=== PATIENT | male | born 1940 ===

== ENCOUNTER → 2017-05-07 | Day surgery (SDC) | payer OTHER ==
[~2017-05-07] VITALS: Ht 165.1 cm; Wt 59.0 kg
[~2017-05-07] MED LIST: ASCO1CAP3 PO; ATOR-22 PO; B-CO1CAP3 PO; CALCTAB5 PO; CHOL1000 PO; FENTANYL CITRATE INJ 50 MCG/1 ML 2 ML VIAL ONE; FINA5TAB PO; LIDOCAINE HCL 2% 2 ML VIAL (20MG/ML) ONE; METO50TA16 PO; MIDAZOLAM HCL 5 MG/ML 1 ML VIAL ONE; MULT-506 PO; PROPOFOL IV EMULSION 10 MG/ML 20 ML VIAL IV ONE; RIVA1TAB4 PO; SENNTAB23 PO
[2017-05-07 07:16] VITALS: BP 140/70; PULSE 78; TEMP 36.7; O2SAT 98; Ht 165.1 cm; Wt 59.0 kg
--- NOTE | 2017-05-07 08:03 | History & Physical Bridge Note ---
H&P Re-Evaluation Bridge Note: I have examined the patient, reviewed the History & Physical and in the interval since the performance of the History & Physical I have noted the following changes of clinical significance: No changes noted
--- NOTE | 2017-05-07 08:03 | Procedure Note ---
Pre-Mod Sedation Assessment General Date of Moderate Sedation: May 07, 2017. Vital Signs: Vital Signs Past 12 Hours Date Time Temp Pulse Resp B/P (MAP) Pulse Ox O2 Delivery O2 Flow Rate FiO2 05/07/17 07:16 36.7 78 16 140/70 98 Room Air Review Cardiovascular: regular rate, rhythm Abdomen: soft Lungs: lungs clear Airway Class: II Pre-Sedation Airway Assessment Oral Cavity: Dentures Short Thick Neck: No Hx of Sleep Apnea: No Smoking Status: Never Smoker Mallampati Classification: Class II ASA Classification: Class II Procedure Planning Contraindications-for Mod Sed: None Yes Notes The planned sedation has been discussed with the patient and consent obtained. I have identified the patient, determined the appropriateness of sedation and have assessed the patient immediately prior to the procedure. All medicine(s) and interventions are by my order.
--- NOTE | 2017-05-07 09:26 | Procedure Note ---
Post-Mod Sedation Assessment General Date of Moderate Sedation May 07, 2017. Vital Signs: Vital Signs Past 12 Hours Date Time Temp Pulse Resp B/P (MAP) Pulse Ox O2 Delivery O2 Flow Rate FiO2 05/07/17 07:16 36.7 78 16 140/70 98 Room Air Review - Discharge Criteria Vital Signs Stable: Yes Alert/Oriented/Conversant: Yes Returned to Baseline Mental St: Yes Nausea Absent/Minimal: Yes Pain/Discomfort/Absent/Minimal: Yes Normal/Baseline Respirations: Yes Active Bleeding?: No Pt Received D/C Instructions: N/A Prescriptions Given: None Specific Proced. D/C Criteria Distal Pulses Present (Cardiac: Yes Groin site assessed-Card Cath: Yes Voided Prior To Discharge: Yes Discharged Patients Adult Escort/Transportation: Yes
--- NOTE | 2017-05-07 09:30 | Discharge Instructions ---
Discharge Instructions Date of Service May 07, 2017. Visit Reason for Visit: Atrial Flutter Dr Aleman-Ep; Dr Mancera-Rubén W/Anes Discharge Discharge Diagnosis / Problem: atypical atrial flutter Discharge Goals Goal(s): Improve function Activity Recommendations Activity Limitations: as noted below Lifting Limitations: no more than 10 pounds (for 1 week) Shower/Bathe: tomorrow Driving or Machine Use: resume 1 day after discharge Anesthesia . Post Anesthesia Instructions: If you have had General Anesthesia or IV Sedation: * Do not drive today. * Resume driving when surgeon permits. * Do not make important decisions or sign legal documents today. * Call surgeon for: 1. Temperature elevations greater than 101 degrees F. 2. Uncontrollable pain. 3. Excessive bleeding. 4. Persistent nausea and vomiting. 5. Medication intolerance (nausea, vomiting or rash). * For nausea and vomiting use only clear liquids such as: tea, soda, bouillon until nausea subsides, then gradually increase diet as tolerated. * If you have any concerns or questions, call your surgeon's office. If physician is unavailable and it is an emergency, call 911 or go to the nearest emergency room. . Diet Recommendations Recommended Home Diet: resume previous diet Procedures Procedures Performed: EPS Pending Studies Studies pending at discharge: no Medical Emergencies . Who to Call and When: Medical Emergencies: If at any time you feel your situation is an emergency, please call 911 immediately. . Non-Emergent Contact Non-Emergency issues call your: Motion Picture [employer] . . "Provider Documentation" section prepared by Xiomara Aleman. .
--- NOTE | 2017-05-07 09:32 | [facility] Post Operative Brief Note ---
Immediate Operative Summary Operative Date May 07, 2017. Pre-Operative Diagnosis atrial flutter Post-Operative Diagnosis atypical atrial flutter; bidrectional block across CTI Procedure(s) Performed EPS Surgeon shirley osorio Synthetic Resin Operator Surgeon(s) none Estimated Blood Loss <5cc Findings see official report Fluids (cc crystalloids) 300cc Specimens none Drains none Anesthesia 3mg versed 75mcg fentanyl Complication(s) None Disposition refuse laborer holding
--- NOTE | 2017-05-07 10:32 | OPERATIVE REPORT ---
DATE OF OPERATION: 05/07/2017 PREOPERATIVE DIAGNOSIS: Recurrent paroxysmal atrial flutter. 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 PROCEDURE: Electrophysiology study. SURGEON: Dr. Xiomara Aleman. DOUBLE BASS PLAYER: None. ANESTHESIA: Monitored conscious sedation given total of 3 mg of Versed and 75 mcg of fentanyl administered by Papi Ferreira under my supervision. Start time 8:35, end time 9:22. CONDITION: Stable. COMPLICATIONS: None. URINE OUTPUT: Not applicable. SPECIMENS: None. FINDINGS: See below. BLOOD LOSS: Less than 5 mL. DRAINS: None. IV FLUIDS: 300 mL. INDICATIONS: This is a 76-year-old gentleman with past medical history for paroxysmal atrial flutter where he underwent a CTI ablation with Dr. Mian tang in May 2014. He had a recurrent episode in March 2017, which required hospitalization and a significant increase in his AV mc blockers where he ended up undergoing CARLITA, but then converted to sinus, so the cardioversion was canceled. 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 He still remains on Lasix. Due to the recurrent atrial flutter and significant increase in his beta blockers it was reasonable to see and ensure that the cavotricuspid isthmus still had bidirectional block. The patient was brought for electrophysiology study. CONSENT: Consent was obtained prior to the patient going into the electrophysiology lab. The patient was informed of risks, benefits, alternatives to the procedure. Risks include but not limited to sudden cardiac , cardiac arrhythmias, cerebrovascular accident, myocardial infarction, injury to the blood vessels, chamber of the heart, bleeding and infection. The patient understood these risks and agreed to the procedure as planned. Informed consent was obtained. DESCRIPTION OF THE PROCEDURE: The patient was brought into the electrophysiology lab in a fasting state. He was connected to continuous cardiac monitoring. A time-out was performed to ensure patient's identify and procedure correctly. The patient was prepped and draped over the bilateral groins in normal surgical standard fashion. Monitored conscious sedation was given throughout the procedure under my supervision. [place] precautions were maintained during the procedure. A 10 mL of 1% lidocaine were given in the left femoral groin. Using the modified Seldinger technique, venous access was obtained in the left femoral vein as follows: A 7-[place] sheath followed by a Halo 20 pole catheter positioned around the right atrium. An 8-[place] sheath followed by a Dep-Xploraense Decapolar coronary sinus catheter DF curve positioned out in the coronary sinus. Electrophysiology study was performed with the results as follows: AR interval 112 milliseconds, QRS 60 milliseconds, QT 362 milliseconds. Sinus cycle length 784 milliseconds with pacing from the Halo catheter which is the lateral right atrium pacing from Halo 5 to the CS proximal measured 74 milliseconds, pacing from the Halo distal to CS prox increased to 102 milliseconds and then proximal pacing from CS prox and measuring to Halo distal was 132 milliseconds with the correct activation change on the Halo catheter when pacing coronary sinus prox indicating that there was still bidirectional block and that the flutter he had during the course of his Lyme disease where he needed cardioversion was most likely atypical. The coronary sinus catheter was removed and a [place] quadripolar catheter was positioned over the His bundle and the AH interval was 58 milliseconds, HV was 44 milliseconds. The [place] catheter was then positioned into the right ventricular apex. The AV Wenckebach was found to be 330 milliseconds, the atrial ERP was 600/240 and 400/210. The AV node ERP was 600/260, 400/220. The RV ERP was 600/230 and less than or equal to 400/200. I did burst pace from the high rate atrium down to 200. No arrhythmias were created. The catheters were removed from the body and the sheaths were pulled manually and manual compression was used to create hemostasis. IMPRESSION: 1. Bidirectional block along the cavotricuspid isthmus. 2. Normal atrioventricular node and conduction. 3. Probable atypical atrial flutter during the course of his acute Lyme disease recently. PLAN: Monitor patient post-sedation and procedure. I would continue his metoprolol 50 mg b.i.d., I think that is reasonable and he seemed to tolerate it. Would continue his blood thinner as well for now and we will monitor him and I see him back in 1 month's time. Should he have recurrent episodes of this atypical flutter, which possibly could also create some atrial fibrillation, I would consider antiarrhythmic therapy. He is not allowed to lift more than 10 pounds or do any heavy squatting for 1 week. I attest to the content of the Intraoperative Record and any orders documented therein. Any exceptions are noted below. MTDD
[2017-05-07 11:15] VITALS: BP 124/60; PULSE 70; O2SAT 96
== END | disposition home or self-care (01) ==
LOC: C.EP 06:07
PROVIDERS: ATTEND Internal Medicine
DX: I48.92 Unspecified atrial flutter (principal); M81.0 Age-related osteoporosis without current pathological fracture; N40.1 Benign prostatic hyperplasia with lower urinary tract symptoms; E78.2 Mixed hyperlipidemia; N13.8 Other obstructive and reflux uropathy; Z79.01 Long term (current) use of anticoagulants; Z79.82 Long term (current) use of aspirin; Z83.6 Family history of other diseases of the respiratory system; Z82.49 Family history of ischemic heart disease and other diseases of the circulatory system